=== PATIENT | female | born 1955 | race Caucasian/White ===

== ENCOUNTER → 2016-08-16 | Outpatient (CLI) | payer OTHER ==
[~2016-08-16] MED LIST: A-SPAS-S/L0.125 MG SL; CALCIUM 600 +1 EACH PO; CALCIUM 600 MG1 EACH PO; CELEBREX200 MG PO; CRANBERRY TABL1 EACH PO; CRANBERRY1000 MG PO; CYANOCOBAL1000 MCG/2 IM; ENULOSE10 GM/15 M PO; FLAGYL250 MG PO; FORTICAL,200 INTUNI NS; FOSAMAX70 MG PO; GABAPENTIN800 MG PO; HYOSCYAMINE0.125 MG PO; KLONOPIN0.5 M1 PO; LACTULOSE10 GM/151 PO; METAMUCIL; METAMUCIL PLUS1 EACH PO; MIRALAX17 GM PO; PRAVACHOL20 MG PO; PREMPRO 0.3 MG1 EACH PO; PREMPRO 0.31 TABLET PO; PROMETHAZINE HC25 M1 PO; RECLAST5 MG/100 M IV; TOPROL XL50 MG PO; TRIMETHOPRIM100 MG PO; ULTRAM50 MG PO; VITAMIN B12-FO1 EACH PO; VITAMIN D2000 UNIT PO; VITAMIN D400 UNI1 PO
== END | disposition home or self-care (01) ==
LOC: OPR 08:32 → EDSTATUS 09:00
PROC: 0KB Muscles, Excision (ICD-10-PCS; principal; 2016-08-16)
DX: R22.2 Localized swelling, mass and lump, trunk (principal); R07.81 Pleurodynia; M41.9 Scoliosis, unspecified
CPT/HCPCS: 77012; 88305; 88341 TC; 88342 TC; J3010

== ENCOUNTER → 2016-09-21 | Outpatient (CLI) | payer OTHER ==
[~2016-09-21] VITALS: Ht 147.3 cm; Wt 45.4 kg
[~2016-09-21] MED LIST changes: +ESTRACE0.5 MG PO; +MEDROXYPROGEST2.5 MG PO
[2016-09-21 09:04] LABS: HEMATOCRIT 33.9 % (36.0-46.0); MCH 29.9 PG (29.0-34.0); MCHC 33.6 G/DL (30.0-36.0); MEAN PLAT.VOLUME 9.8 uM^3 (9.5-12.4); PLATELET COUNT 227 K/uL (156-360); RBC DIS.WIDTH-SD 38.7 % (39-53); RED BLOOD COUNT 3.81 M/uL (3.80-5.20); WHITE BLOOD COUNT 5.2 K/uL (4.1-10.2)
[2016-09-21 09:14] LABS: INTER. NORMALIZED RATIO 1.1; PROTHROMBIN TIME 12.3 SEC (10.2-12.9)
[2016-09-21 09:17] LABS: PTT 29.6 SEC (25-37)
== END | disposition home or self-care (01) ==
LOC: OPR 09-07 09:00 → EDSTATUS 09:00
PROVIDERS: Thoracic Surgery (Cardiothoracic Vascular Surgery)
PROC: 0JB63ZX Excision of Chest Subcutaneous Tissue and Fascia, Percutaneous Approach, Diagnostic (ICD-10-PCS; principal; 2016-09-21)
DX: R22.2 Localized swelling, mass and lump, trunk (principal); R07.81 Pleurodynia; I10 Essential (primary) hypertension; M81.0 Age-related osteoporosis without current pathological fracture; M41.9 Scoliosis, unspecified; I73.00 Raynaud's syndrome without gangrene; N28.9 Disorder of kidney and ureter, unspecified; Z92.3 Personal history of irradiation
CPT/HCPCS: 77012; 85027; 85610; 85730; 88305; J3010